=== PATIENT | male | born 1995 | race Caucasian/White ===

== ENCOUNTER 2020-04-07 02:15 | Emergency (ER) | payer MEDICAID ==
[~2020-04-07] VITALS: Ht 175.3 cm; Wt 72.6 kg
[2020-04-07 02:20] VITALS: BP 128/73
--- NOTE | 2020-04-07 02:20 | NUR ---
PATIENT ESCORTED TO LOBBY BY EMS. VSS. A&O X4.
[2020-04-07 02:35] VITALS: BP 128/73
--- NOTE | 2020-04-07 03:00 | NUR ---
PT CALLED IN LOBBY AND OUTSIDE. NO ANSWER
--- NOTE | 2020-04-07 03:05 | NUR ---
PT CALLED IN LOBBY AND OUTSIDE. NO ANSWER
--- NOTE | 2020-04-07 03:15 | NUR ---
PT CALLED IN LOBBY AND OUTSIDE. NO ANSWER. PATIENT LEFT WITHOUT BEING SEEN BY DR. DUNNE. NO FURTHER CARE PROVIDED FOR PATIENT.
== END 2020-04-07 03:15 | disposition left against medical advice (07) ==
LOC: MED 02:15
DX: F10.129 Alcohol abuse with intoxication, unspecified (principal); Z53.21 Procedure and treatment not carried out due to patient leaving prior to being seen by health care provider; Y90.9 Presence of alcohol in blood, level not specified

== ENCOUNTER 2023-09-04 22:54 | Emergency (ER) | payer MEDICAID ==
[2023-09-04 23:22] VITALS: BP 141/99; PULSE 76; RESP 16; TEMP 97.3; O2SAT 100
== END 2023-09-05 00:18 | disposition left against medical advice (07) ==
LOC: MED 22:54
DX: F10.239 Alcohol dependence with withdrawal, unspecified (principal); Z53.21 Procedure and treatment not carried out due to patient leaving prior to being seen by health care provider; Y90.9 Presence of alcohol in blood, level not specified

== ENCOUNTER 2023-10-29 21:47 | Emergency (ER) | payer MEDICAID ==
[~2023-10-29] VITALS: Ht 167.6 cm; Wt 72.6 kg
[~2023-10-29 21:47] MED LIST: SERT25TA PO
[2023-10-29 22:19] VITALS: BP 138/78; PULSE 106; RESP 16; TEMP 97.6; O2SAT 99
[2023-10-29 23:25] VITALS: O2SAT 95
[2023-10-30] MEDS: diazePAM 5 MG TAB PO ONE (00:53)
[2023-10-30] MEDS: ONDANSETRON 4 MG/2 ML VIAL IVP ONE ×2 (01:15→04:03)
[2023-10-30] MEDS: NACL 0.9% 1,000 ML IV SCH (01:16)
[2023-10-30 01:24] LABS: BASOPHILS # (AUTO) 0.1 K/uL (0.00-0.22); BASOPHILS % (AUTO) 0.7 % (0.0-2.0); EOSINOPHILS % (AUTO) 0.1 % (0.0-4.0); HEMATOCRIT 46.6 % (36-52); HEMOGLOBIN 15.7 g/dL (12.0-18.0); LYMPHOCYTES # (AUTO) 2.6 K/uL (2.0-11.5); LYMPHOCYTES % (AUTO) 33.8 % (20.5-51.1); MEAN CORPUSCULAR HEMOGLOBIN 30 pg (27-31); MEAN CORPUSCULAR HGB CONC 34 g/dL (33-37); MEAN CORPUSCULAR VOLUME 89.4 fL (80-94); MONOCYTES # (AUTO) 0.6 K/uL (0.8-1.0); MONOCYTES % (AUTO) 8.3 % (1.7-9.3); NEUTROPHILS # (AUTO) 4.3 K/uL (1.8-7.7); NEUTROPHILS % (AUTO) 57.1 % (42.2-75.2); PLATELET COUNT (AUTO) 193 K/uL (140-450); RED BLOOD CELL COUNT(AUTO) 5.21 MIL/uL (4.20-6.10); RED CELL DISTRIBUTION WIDTH 13.5 % (11.6-13.7); WHITE BLOOD COUNT (AUTO) 7.6 K/uL (4.8-10.8)
[2023-10-30 01:34] LABS: ALANINE AMINOTRANSFERASE 43 U/L (12-78); ALBUMIN 3.6 g/dL (3.4-5.0); ALKALINE PHOSPHATASE 95 U/L (50-136); ASPARTATE AMINOTRANSFERASE 18 U/L (15-37); BILIRUBIN,DIRECT 0.2 mg/dL (0.0-0.3); LIPASE 39 U/L (16-77); TOTAL BILIRUBIN 0.8 mg/dL (0.0-1.0); TOTAL PROTEIN, SERUM 7.7 g/dL (6.4-8.2)
[2023-10-30 02:05] LABS: ANION GAP 17.4 (8-16); CALCIUM 8.7 mg/dL (8.5-10.1); CARBON DIOXIDE 26.2 mmol/L (21-32); POTASSIUM 3.6 mmol/L (3.5-5.1)
[2023-10-30 02:14] LABS: APPEARANCE,URINE CLEAR (CLEAR); BILIRUBIN,URINE NEGATIVE (NEGATIVE); BLOOD, URINE NEGATIVE (NEGATIVE); COLOR,URINE YELLOW (YELLOW); LEUKOCYTE ESTERASE ,URINE NEGATIVE (NEGATIVE); NITRITE, URINE NEGATIVE (NEGATIVE); PH,URINE 6.5 (5.0-9.0); PROTEIN,URINE NEGATIVE (NEGATIVE); UGLUCOSE NEGATIVE (NEGATIVE); UROBILINOGEN,URINE 0.2 EU/dL (0.2 - 1)
[2023-10-30] MEDS: NACL 0.9% 1,000 ML IV ONE (03:36)
[2023-10-30] MEDS: LORazepam 2 MG/ML VIAL IVP ONE (04:03)
[2023-10-30 06:44] VITALS: O2SAT 95
[2023-10-30] MEDS ORDERED: CHLO-757 PO (07:14)
[2023-10-30 07:18] VITALS: BP 113/67; PULSE 104; RESP 19; TEMP 98.2; O2SAT 96
== END 2023-10-30 07:18 | disposition home or self-care (01) ==
LOC: MED 21:47
DX: R11.2 Nausea with vomiting, unspecified (principal); F19.10 Other psychoactive substance abuse, uncomplicated; R10.13 Epigastric pain; R00.0 Tachycardia, unspecified; F10.129 Alcohol abuse with intoxication, unspecified; F14.10 Cocaine abuse, uncomplicated; F11.10 Opioid abuse, uncomplicated; Z86.69 Personal history of other diseases of the nervous system and sense organs; Z79.899 Other long term (current) drug therapy; Y90.8 Blood alcohol level of 240 mg/100 ml or more
CPT/HCPCS: 36415; 71045; 73130; 80048; 80076; 81003; 83690; 84484; 85025; 93005; 96361; 96374; 96375; 96376; 99285; G0482; J2060; J2405; J7030

== ENCOUNTER 2023-10-30 19:42 | Inpatient (IN) | payer MEDICAID ==
[~2023-10-30] VITALS: Ht 170.2 cm; Wt 81.6 kg
[~2023-10-30 19:42] MED LIST changes: +CHLO-757 PO
[2023-10-30 20:01] VITALS: BP 127/73; PULSE 117; RESP 14; TEMP 97.1; O2SAT 98
[2023-10-30 20:06] VITALS: O2SAT 98
[2023-10-30] MEDS: ONDANSETRON 4 MG/2 ML VIAL IVP ONE ×2 (20:10→20:50)
[2023-10-30] MEDS: NACL 0.9% 2,000 ML IV ONE (20:11)
[2023-10-30 20:17] LABS: BASOPHILS % (AUTO) 0.9 % (0.0-2.0); EOSINOPHILS % (AUTO) 0.1 % (0.0-4.0); HEMATOCRIT 46.4 % (36-52); HEMOGLOBIN 15.4 g/dL (12.0-18.0); LYMPHOCYTES # (AUTO) 2.1 K/uL (2.0-11.5); LYMPHOCYTES % (AUTO) 42.9 % (20.5-51.1); MEAN CORPUSCULAR HEMOGLOBIN 30 pg (27-31); MEAN CORPUSCULAR HGB CONC 33 g/dL (33-37); MEAN CORPUSCULAR VOLUME 88.9 fL (80-94); MONOCYTES # (AUTO) 0.4 K/uL (0.8-1.0); MONOCYTES % (AUTO) 8.5 % (1.7-9.3); NEUTROPHILS # (AUTO) 2.4 K/uL (1.8-7.7); NEUTROPHILS % (AUTO) 47.6 % (42.2-75.2); PLATELET COUNT (AUTO) 172 K/uL (140-450); RED BLOOD CELL COUNT(AUTO) 5.22 MIL/uL (4.20-6.10); RED CELL DISTRIBUTION WIDTH 13.5 % (11.6-13.7)
[2023-10-30 20:45] LABS: ANION GAP 16.5 (8-16); CALCIUM 8.7 mg/dL (8.5-10.1); CARBON DIOXIDE 26.1 mmol/L (21-32); CREATININE 0.9 mg/dL (0.6-1.3); POTASSIUM 3.6 mmol/L (3.5-5.1)
[2023-10-30] MEDS: diazePAM 5 MG TAB PO ONE (20:48)
[2023-10-30 21:08] LABS: ALBUMIN 3.9 g/dL (3.4-5.0); BILIRUBIN,DIRECT 0.2 mg/dL (0.0-0.3); TOTAL BILIRUBIN 0.7 mg/dL (0.0-1.0); TOTAL PROTEIN, SERUM 7.5 g/dL (6.4-8.2)
[2023-10-30] MEDS ORDERED: ACETAMINOPHEN 325 MG TAB PO PRN (22:25)
[2023-10-30] MEDS: LACTATED RINGERS 1,000 ML IV SCH (23:02)
[2023-10-30 23:05] VITALS: BP 117/60; PULSE 91; RESP 18; TEMP 98.7; O2SAT 96
[2023-10-30] MEDS: LORazepam 2 MG/ML VIAL IVP PRN (23:27)
[2023-10-30] MEDS: THIAMINE 200 MG/2 ML VIAL IV SCH (23:27)
[2023-10-31 04:00] VITALS: BP 125/67; PULSE 88; RESP 18; TEMP 98.7; O2SAT 96
[2023-10-31 05:14] LABS: BASOPHILS % (AUTO) 0.9 % (0.0-2.0); EOSINOPHILS % (AUTO) 0.6 % (0.0-4.0); HEMATOCRIT 40.5 % (36-52); HEMOGLOBIN 13.6 g/dL (12.0-18.0); LYMPHOCYTES % (AUTO) 57.4 % (20.5-51.1); MEAN CORPUSCULAR HEMOGLOBIN 30 pg (27-31); MEAN CORPUSCULAR HGB CONC 34 g/dL (33-37); MEAN CORPUSCULAR VOLUME 89.1 fL (80-94); MONOCYTES # (AUTO) 0.3 K/uL (0.8-1.0); MONOCYTES % (AUTO) 6.4 % (1.7-9.3); NEUTROPHILS # (AUTO) 1.8 K/uL (1.8-7.7); NEUTROPHILS % (AUTO) 34.7 % (42.2-75.2); PLATELET COUNT (AUTO) 129 K/uL (140-450); RED BLOOD CELL COUNT(AUTO) 4.55 MIL/uL (4.20-6.10); RED CELL DISTRIBUTION WIDTH 13.6 % (11.6-13.7); WHITE BLOOD COUNT (AUTO) 5.1 K/uL (4.8-10.8)
[2023-10-31 05:32] LABS: ALBUMIN 3.2 g/dL (3.4-5.0); ANION GAP 13.9 (8-16); CARBON DIOXIDE 26.6 mmol/L (21-32); CREATININE 0.8 mg/dL (0.6-1.3); MAGNESIUM 1.7 mg/dL (1.8-2.4); PHOSPHORUS 3.5 mg/dL (2.5-4.9); POTASSIUM 3.5 mmol/L (3.5-5.1); TOTAL BILIRUBIN 0.6 mg/dL (0.0-1.0); TOTAL PROTEIN, SERUM 5.8 g/dL (6.4-8.2)
[2023-10-31 08:00] VITALS: BP 115/62; PULSE 100; PULSE 91; RESP 18; TEMP 98.6; O2SAT 92; O2SAT 96
[2023-10-31] MEDS: FOLIC ACID 1 MG TAB PO SCH (08:16)
[2023-10-31] MEDS: ENOXAPARIN 40 MG/0.4 ML SYR SUBQ SCH (08:18)
[2023-10-31] MEDS: NACL 0.9% 1,000 ML IV ONE (11:25)
[2023-10-31 12:00] VITALS: BP 119/70; PULSE 100; RESP 18; TEMP 98.1; O2SAT 98
[2023-10-31] MEDS: chlordiazePOXIDE 25 MG CAP PO SCH (13:44)
[2023-10-31 16:00] VITALS: BP 116/80; PULSE 104; RESP 18; TEMP 98.1; O2SAT 98
[2023-10-31 18:54] LABS: AMPHETAMINE, URINE NEGATIVE ng/ml (NEG <=1000); BARBITURATE, URINE NEGATIVE ng/ml (NEG <=200); BENZODIAZEPINE, URINE POSITIVE ng/mL (NEG <=200); CANNABINOID, URINE POSITIVE ng/mL (NEG <=50); COCAINE, URINE NEGATIVE ng/mL (NEG <=300); OPIATE, URINE NEGATIVE ng/mL (NEG <=2000); PHENCYCLIDINE SCREEN,URINE NEGATIVE ng/mL (NEG <=25)
[2023-10-31 20:00] VITALS: BP 122/60; PULSE 82; RESP 18; TEMP 97.5; O2SAT 96
[2023-10-31] MEDS: ONDANSETRON 4 MG/2 ML VIAL IVP PRN (22:06)
[2023-11-01 04:00] VITALS: BP 117/71; PULSE 80; RESP 18; TEMP 97.4; O2SAT 98
[2023-11-01 05:45] LABS: BASOPHILS # (AUTO) 0.1 K/uL (0.00-0.22); BASOPHILS % (AUTO) 0.8 % (0.0-2.0); EOSINOPHILS % (AUTO) 0.8 % (0.0-4.0); HEMOGLOBIN 14.3 g/dL (12.0-18.0); LYMPHOCYTES # (AUTO) 2.4 K/uL (2.0-11.5); LYMPHOCYTES % (AUTO) 38.6 % (20.5-51.1); MEAN CORPUSCULAR HEMOGLOBIN 30 pg (27-31); MEAN CORPUSCULAR HGB CONC 33 g/dL (33-37); MEAN CORPUSCULAR VOLUME 89.3 fL (80-94); MONOCYTES # (AUTO) 0.4 K/uL (0.8-1.0); MONOCYTES % (AUTO) 6.6 % (1.7-9.3); NEUTROPHILS # (AUTO) 3.3 K/uL (1.8-7.7); NEUTROPHILS % (AUTO) 53.2 % (42.2-75.2); PLATELET COUNT (AUTO) 120 K/uL (140-450); RED BLOOD CELL COUNT(AUTO) 4.81 MIL/uL (4.20-6.10); RED CELL DISTRIBUTION WIDTH 13.3 % (11.6-13.7); WHITE BLOOD COUNT (AUTO) 6.2 K/uL (4.8-10.8)
[2023-11-01 05:53] LABS: ANION GAP 12.1 (8-16); CALCIUM 8.7 mg/dL (8.5-10.1); CARBON DIOXIDE 27.4 mmol/L (21-32); CREATININE 0.8 mg/dL (0.6-1.3); POTASSIUM 3.5 mmol/L (3.5-5.1)
[2023-11-01 08:00] VITALS: BP 110/68; PULSE 67; PULSE 82; RESP 18; RESP 20; TEMP 97.5; O2SAT 96; O2SAT 99
== END 2023-11-01 16:50 | disposition left against medical advice (07) | DRG 282 ==
LOC: MED 19:42 → MMU 22:35 → MTU 23:24
PROVIDERS: ADMIT Student in an Organized Health Care Education/Training Program; ATTEND Student in an Organized Health Care Education/Training Program
DX: K85.90 Acute pancreatitis without necrosis or infection, unspecified (principal); F10.120 Alcohol abuse with intoxication, uncomplicated; F17.210 Nicotine dependence, cigarettes, uncomplicated; F19.10 Other psychoactive substance abuse, uncomplicated; Z53.29 Procedure and treatment not carried out because of patient's decision for other reasons; F10.130 Alcohol abuse with withdrawal, uncomplicated; Z79.899 Other long term (current) drug therapy
CPT/HCPCS: 36415; 80048; 80053; 80076; 80305; 83690; 83735; 83880; 84100; 85025; 87081; 93005; G0482; J1650; J2060; J2405; J3411

== ENCOUNTER 2023-11-02 00:40 | Emergency (ER) | payer MEDICAID ==
[~2023-11-02] VITALS: Ht 177.8 cm; Wt 70.8 kg
[2023-11-02 00:48] VITALS: BP 118/69; PULSE 102; RESP 19; TEMP 98.3; O2SAT 99
[2023-11-02] MEDS ORDERED: LORazepam 1 MG TAB ONE (00:50)
[2023-11-02] MEDS: LORazepam 1 MG TAB PO ONE (00:54)
== END 2023-11-02 00:53 ==
LOC: MED 00:40
DX: F10.10 Alcohol abuse, uncomplicated (principal); F11.10 Opioid abuse, uncomplicated; Z02.89 Encounter for other administrative examinations; F12.90 Cannabis use, unspecified, uncomplicated; F15.90 Other stimulant use, unspecified, uncomplicated; Z79.899 Other long term (current) drug therapy; Y90.9 Presence of alcohol in blood, level not specified
CPT/HCPCS: 99283

== ENCOUNTER 2023-11-08 06:30 | Emergency (ER) | payer MEDICAID ==
[~2023-11-08] VITALS: Ht 177.8 cm; Wt 72.2 kg
[2023-11-08 06:36] VITALS: BP 116/73; PULSE 95; RESP 18; TEMP 97.8; O2SAT 95
[2023-11-08 07:03] VITALS: BP 106/59; PULSE 87; RESP 12; O2SAT 98
[2023-11-08 07:09] LABS: BASOPHILS % (AUTO) 0.7 % (0.0-2.0); EOSINOPHILS # (AUTO) 0.1 K/uL (0-0.4); EOSINOPHILS % (AUTO) 1.2 % (0.0-4.0); HEMATOCRIT 44.3 % (36-52); LYMPHOCYTES # (AUTO) 1.9 K/uL (2.0-11.5); LYMPHOCYTES % (AUTO) 44.6 % (20.5-51.1); MEAN CORPUSCULAR HEMOGLOBIN 30 pg (27-31); MEAN CORPUSCULAR HGB CONC 34 g/dL (33-37); MEAN CORPUSCULAR VOLUME 89.1 fL (80-94); MONOCYTES # (AUTO) 0.7 K/uL (0.8-1.0); MONOCYTES % (AUTO) 15.9 % (1.7-9.3); NEUTROPHILS # (AUTO) 1.6 K/uL (1.8-7.7); NEUTROPHILS % (AUTO) 37.6 % (42.2-75.2); PLATELET COUNT (AUTO) 148 K/uL (140-450); RED BLOOD CELL COUNT(AUTO) 4.97 MIL/uL (4.20-6.10); RED CELL DISTRIBUTION WIDTH 14.3 % (11.6-13.7); WHITE BLOOD COUNT (AUTO) 4.4 K/uL (4.8-10.8)
[2023-11-08 07:17] LABS: ANION GAP 20.3 (8-16); CALCIUM 8.5 mg/dL (8.5-10.1); CARBON DIOXIDE 20.3 mmol/L (21-32); CREATININE 0.8 mg/dL (0.6-1.3); POTASSIUM 3.6 mmol/L (3.5-5.1)
[2023-11-08 07:23] LABS: ALBUMIN 4.1 g/dL (3.4-5.0); BILIRUBIN,DIRECT 0.2 mg/dL (0.0-0.3); TOTAL BILIRUBIN 0.6 mg/dL (0.0-1.0); TOTAL PROTEIN, SERUM 7.2 g/dL (6.4-8.2)
== END 2023-11-08 07:35 | disposition home or self-care (01) ==
LOC: MED 06:30
DX: K85.90 Acute pancreatitis without necrosis or infection, unspecified (principal); F10.20 Alcohol dependence, uncomplicated; F19.10 Other psychoactive substance abuse, uncomplicated; F12.90 Cannabis use, unspecified, uncomplicated; Z79.899 Other long term (current) drug therapy; Z71.6 Tobacco abuse counseling; Y90.9 Presence of alcohol in blood, level not specified
CPT/HCPCS: 36415; 80048; 80076; 83690; 85025; 99283

== ENCOUNTER 2023-11-08 11:52 | Emergency (ER) | payer MEDICAID | END 2023-11-08 12:11 | disposition left against medical advice (07) | LOC: MED 11:52 | DX: F10.139 Alcohol abuse with withdrawal, unspecified (principal); Y90.9 Presence of alcohol in blood, level not specified | CPT/HCPCS: 99281 ==